=== PATIENT | male | born 1975 | race African-American/Black ===

== ENCOUNTER 2016-10-30 11:48 | Emergency (ER) | payer SELFPAY ==
[~2016-10-30] VITALS: Ht 195.6 cm; Wt 115.7 kg
[~2016-10-30 11:48] MED LIST: ERYT1OIN6 EACHEYE
[2016-10-30 12:25] VITALS: BP 144/103
[2016-10-30] MEDS ORDERED: LIDOCAINE/EPI/TETRACAINE TOPICAL GEL 3 ML. TP ONE (12:30)
[2016-10-30] MEDS ORDERED: LIDOCAINE 1%/EPI 1:100,000 20 ML VIAL. INJ ONE (12:30)
--- NOTE | 2016-10-30 12:58 | PHYS DOC ---
Past Medical History Past Medical History: Hypertension Past Surgical History: No Surgical History Alcohol Use: None Drug Use: None Adult General Chief Complaint Chief Complaint: EYE PROBLEMS HPI HPI Patient is a 41 year old male who presents with right eyelid swelling. States he noticed painful swollen eyelid last night. Also states he has clear drainage from his right eye & it feels itchy. Denies fevers/chills, vision changes, pain with eye movement, nasal congestion, sore throat, cough. Does not wear contacts. Review of Systems Review of Systems Constitutional: Denies fever or chills Eyes: Reports eyelid swelling & eye itching. HENT: Denies nasal congestion or sore throat Respiratory: Denies cough or shortness of breath Cardiovascular: Denies chest pain GI: Denies nausea, vomiting Integument: Denies rash Neurologic: Denies headache Current Medications Current Medications Current Medications Medications (Trade) Dose Ordered Sig/Reji Start Time Stop Time Status Last Admin Dose Admin Erythromycin (Romycin) 0.25 inch 1X ONCE 10/30/16 13:00 10/30/16 13:01 DC 10/30/16 12:53 0.25 INCH Ibuprofen (Motrin) 600 mg 1X ONCE 10/30/16 13:00 10/30/16 13:01 DC 10/30/16 13:03 600 MG Lidocaine/ Epinephrine (Let Topical) 3 ml 1X ONCE 10/30/16 12:30 10/30/16 12:42 DC Lidocaine/ Epinephrine (Xylocaine 1%-Epi 1:100,000) 20 ml 1X ONCE 10/30/16 12:30 10/30/16 12:42 DC Allergies Allergies Allergies Coded Allergies Type Severity Reaction Last Updated Verified ciprofloxacin Allergy Severe Anaphylaxis 05/22/15 Yes Physical Exam Physical Exam Constitutional: Well developed, well nourished, no acute distress, non-toxic appearance. HENT: Normocephalic, atraumatic, bilateral external ears normal, oropharynx moist, nose normal. Eyes: PERRLA, EOMI, right conjunctival very slightly injected, no discharge. right upper eyelid stye without cellulitis. Cardiovascular: no edema. Lungs & Thorax: no respiratory distress. Abdomen: nondistended. Skin: Warm, dry, no erythema, no rash. Extremities: No deformity Neurologic: Alert and oriented X 3 Current Patient Data Vital Signs Vital Signs Date Time Temp Pulse Resp B/P (MAP) Pulse Ox O2 Delivery O2 Flow Rate FiO2 9/9/17 12:25 98.0 65 16 98 Room Air 98.0 EKG EKG [] Radiology/Procedures Radiology/Procedures [] Course & Med Decision Making Course & Med Decision Making Pertinent Labs and Imaging studies reviewed. (See chart for details) Patient presents with stye & possible conjunctivitis. Well appearing, no fever or cellulitis. Recommend warm compresses for stye & tylenol or ibuprofen for pain, erythromycin ointment for conjunctivitis & eye irritation. Follow up with Dr. Woodson in the eye clinic for additional concerns. Come back for symptoms of periorbital or orbital cellulitis, vision changes, any otherwise worsening condition. Discharged home in stable condition. [] Dragon Disclaimer Dragon Disclaimer This electronic medical record was generated, in whole or in part, using a voice recognition dictation system. Departure Departure Impression: Primary Impression: Stye Disposition: 01 HOME, SELF-CARE Condition: STABLE Referrals: NO PCP (PCP) YOMAIRA WOODSON MD Patient Instructions: Bacterial Conjunctivitis, [id number], Sty Additional Instructions: You were seen in the emergency department today for sty & possible conjunctivitis. Please apply warm compresses, take tylenol or ibuprofen for pain. Use eye ointment 4 times daily. Follow up with Dr. Woodson in the eye clinic if not improving in 2-3 days. Come back for loss of vision, spreading redness/warmth/swelling, any otherwise worsening condition. DHAVAL GEE MD Oct 30, 2016 12:58
[2016-10-30] MEDS ORDERED: IBUPROFEN 600 MG TABLET. PO ONE (13:00)
[2016-10-30] MEDS ORDERED: ERYTHROMYCIN 0.5% OPHTH OINTMENT 1GM TUBE. OD ONE (13:00)
== END 2016-10-30 13:06 | disposition home or self-care (01) ==
LOC: ER 11:48
DX: H00.011 Hordeolum externum right upper eyelid (principal); I10 Essential (primary) hypertension; Z88.1 Allergy status to other antibiotic agents
CPT/HCPCS: 99283

== ENCOUNTER → 2018-05-10 | Outpatient (CLI) | payer OTHER ==
--- NOTE | 2018-05-10 09:56 | RAD ---
Indication: Low back pain and right knee pain and swelling for 2 months. TECHNIQUE: 2 views of the lumbar spine and 2 views of the right knee COMPARISON: None FINDINGS: Lumbar spine: There are 5 lumbar type vertebral bodies. Lumbar spine is in normal anatomic alignment. No compression deformities. No intervertebral disc space narrowing or significant productive changes. SI joints within normal limits. Calcific density projecting over the right upper quadrant likely a gallstone. Knee: No acute fracture or dislocation. Tricompartmental osteoarthritis with moderate medial and lateral joint compartment space narrowing. Small suprapatellar effusion. IMPRESSION: As above. Electronically signed by: Otilio Robles DO (05/10/2018 9:53 AM) [facility]
== END | disposition home or self-care (01) ==
LOC: RAD 09:17
PROVIDERS: ATTEND Surgery
DX: M17.11 Unilateral primary osteoarthritis, right knee (principal); M25.461 Effusion, right knee; M54.5 Low back pain
CPT/HCPCS: 72100; 73560

== ENCOUNTER → 2020-02-20 | Outpatient (CLI) | payer MEDICAID, OTHER ==
[~2020-02-20] MED LIST changes: +FLUT9.9S NS; +IBUP800T19 PO; +OXYC1TAB15 PO; +TRIA50CA PO; +inhaler
== END ==
LOC: LAB 13:58
PROVIDERS: ATTEND Surgery
DX: Z01.812 Encounter for preprocedural laboratory examination (principal); K42.9 Umbilical hernia without obstruction or gangrene; Z20.828 Contact with and (suspected) exposure to other viral communicable diseases
CPT/HCPCS: U0003

== ENCOUNTER 2020-02-26 06:17 | Day surgery (SDC) | payer MEDICAID ==
[~2020-02-26] VITALS: Ht 195.6 cm; Wt 114.0 kg
[~2020-02-26 06:17] MED LIST changes: -OXYC1TAB15 PO; -TRIA50CA PO
[2020-02-26] MEDS ORDERED: DEXAMETHASONE SOD PHOS 4 MG/ML VIAL ONE (06:22)
[2020-02-26] MEDS ORDERED: LIDOCAINE 2% PF 5 ML VIAL. ONE (06:22)
[2020-02-26] MEDS ORDERED: PROPOFOL 10 MG/ML (20ML) VIAL. IV ONE (06:22)
[2020-02-26] MEDS ORDERED: SEVOFLURANE 61 TO 120 MINUTES. IH ONE (06:22)
[2020-02-26] MEDS ORDERED: ONDANSETRON PF 4 MG/2 ML VIAL. ONE (06:22)
[2020-02-26] MEDS ORDERED: PROCHLORPERAZINE 10 MG/2 ML VIAL. IV PRN (07:00)
[2020-02-26] MEDS ORDERED: MORPHINE SULFATE 2 MG/ML VIAL. IV PRN (07:00)
[2020-02-26] MEDS ORDERED: HYDROmorphone 2 MG/ML VIAL IV PRN (07:00)
[2020-02-26] MEDS ORDERED: fentaNYL PF VIAL 100 MCG/2 ML VIAL IV PRN ×2 (07:00)
[2020-02-26] MEDS ORDERED: IV RINGERS,LACTATED 1000ML 1,000 ML IV SCH (07:00)
[2020-02-26] MEDS ORDERED: ONDANSETRON PF 4 MG/2 ML VIAL. IV PRN (07:00)
[2020-02-26] MEDS ORDERED: TRIA50CA PO (07:07)
[2020-02-26] MEDS ORDERED: BUPIVACAINE-EPI 0.5%-1:200000 MPF 30 ML VIAL. INJ ONE (07:15)
[2020-02-26] MEDS ORDERED: MIDAZOLAM HCL/PF 2 MG/2 ML VIAL. ONE (07:27)
[2020-02-26] MEDS ORDERED: fentaNYL PF VIAL 100 MCG/2 ML VIAL ONE ×2 (07:40→08:01)
[2020-02-26] MEDS ORDERED: KETOROLAC 30 MG/ML VIAL. ONE (08:31)
[2020-02-26] MEDS ORDERED: PHENYLEPHRINE in 0.9% NACL PF 1 MG/10 ML SYRINGE. IV ONE (08:31)
--- NOTE | 2020-02-26 08:43 | DISCH ---
DISCHARGE INSTRUCTIONS Condition on Discharge Condition on Discharge: Stable Activity After Discharge Activity Instructions for Disc: Other, see below (no lifting over 20 lbs X 4 weeks) Diet after Discharge Diet after Discharge: Regular Wound Incision Care Wound/Incision Care: Other, see below (keep dressing clean and dry X 72 hours, may then remove and shower) Follow-Up Follow up with: Dr Mayer in 2 weeks in office, call for appt [phone] COLIN MAYER MD Feb 26, 2020 08:43
--- NOTE | 2020-02-26 08:46 | PDOC4 ---
Operative Note Operative Note Operative Note: Preoperative Diagnosis: Umbilical hernia Postoperative Diagnosis: Same Procedure: Umbilical hernia repair with mesh Surgeon: Lupillo Assemblyman Or Woman: Ray SLADE Anesthesia: General EBL: 10 mL Specimen: None Drains: None Complications: None Indication: The patient is a 44-year-old male who was referred with umbilical hernia. He was offered surgical repair. The risks of surgery were discussed which include bleeding, infection, recurrence, pain, anesthetic risk, potential need for additional surgery procedure. Also he was made aware of the increased risk of recurrence while using tobacco and he states that he has stopped this recently. Description: The patient was taken the operating room and placed supine in the operating table. General anesthesia was performed. The abdomen was prepped with ChloraPrep and draped with sterile towels, sheets, and an Ioban. A curved infraumbilical incision was made in the skin with a scalpel. Cautery dissection was carried down to the fascia. The umbilical tissue was elevated off the fascia exposing a small defect. There was a significant amount of extruded preperitoneal fat which was reduced. With blunt dissection a preperitoneal plane was developed circumferentially around the defect. A small Ventralex ST mesh was then placed in this newly formed preperitoneal plane. The mesh was sutured into position using 0 Prolene in a horizontal mattress fashion. The fascial edges were approximated over the mesh with 0 Prolene. The umbilicus was secured back to the fascia with 0 Vicryl. The subcutaneous tissue was closed with 3-0 Vicryl and skin approximated with 4-0 Monocryl. The incision was infiltrated with half percent Marcaine with epinephrine. Steri-Strips and a sterile dressing were applied. The patient tolerated the procedure well and was sent to the recovery room in stable condition. At the end of the case all counts were correct. COLIN MAYER MD Feb 26, 2020 08:46
[2020-02-26] MEDS ORDERED: OXYC1TAB15 PO (08:54)
[2020-02-26] MEDS ORDERED: hydrALAZINE 20 MG/ML VIAL. ONE (09:57)
[2020-02-26] MEDS ORDERED: hydrALAZINE 20 MG/ML VIAL. IVP ONE (10:00)
[2020-02-26] MEDS ORDERED: oxyCODONE/APAP 5/325 1 TAB TABLET PO ONE ×2 (10:00)
[2020-02-26 10:10] VITALS: BP 145/89
== END 2020-02-26 10:50 | disposition home or self-care (01) ==
LOC: SURG 06:17
PROVIDERS: ATTEND Surgery
DX: K42.9 Umbilical hernia without obstruction or gangrene (principal); E78.00 Pure hypercholesterolemia, unspecified; I10 Essential (primary) hypertension; K21.9 Gastro-esophageal reflux disease without esophagitis; J45.909 Unspecified asthma, uncomplicated; G47.33 Obstructive sleep apnea (adult) (pediatric); E66.9 Obesity, unspecified; Z88.8 Allergy status to other drugs, medicaments and biological substances; Z79.899 Other long term (current) drug therapy; Z72.89 Other problems related to lifestyle; Z88.1 Allergy status to other antibiotic agents; Z98.890 Other specified postprocedural states; Z68.29 Body mass index [BMI] 29.0-29.9, adult
CPT/HCPCS: 49585; J0360; J0690; J1100; J1885; J2250; J2370; J2405; J2704; J3010; C1781; J7120

== ENCOUNTER → 2020-05-14 | Outpatient (CLI) | payer OTHER, MEDICAID ==
[~2020-05-14] MED LIST changes: +OXYC1TAB15 PO; +TRIA50CA PO
--- NOTE | 2020-05-14 16:48 | RAD ---
Right knee 3 views INDICATION: Surgery on right knee with difficulty standing or walking long period FINDINGS: Tricompartmental degenerative changes in the right knee are evident with osteophytic spurring in the medial femoral condyle, lateral femoral condyle and tibial plateau, medially and laterally. Osteophyt ic spurring the superior and inferior patella. No loose body or fracture is apparent. No aggressive o sseous lesions are seen. There is no joint effusion or soft tissue swelling appreciated. IMPRESSION: Tricompartmental degenerative changes in the right knee with no fracture or malalignment shown. Electronically signed by: Azael Diaz MD (05/14/2020 4:46 PM) [id number]
== END ==
LOC: RAD 13:22
PROVIDERS: ATTEND Family Medicine
DX: M17.11 Unilateral primary osteoarthritis, right knee (principal)
CPT/HCPCS: 73560